=== PATIENT | female | born 1970 | race Caucasian/White ===

== ENCOUNTER → 2023-09-06 11:27 | Outpatient (BNVA) | payer OTHER, SELFPAY | PROVIDERS: PCP Internal Medicine; Visit Provider Physician Assistant Medical | DX: S39.012A Strain of muscle, fascia and tendon of lower back, initial encounter (principal); W01.0XXA Fall on same level from slipping, tripping and stumbling without subsequent striking against object, initial encounter; M54.17 Radiculopathy, lumbosacral region | CPT/HCPCS: 99202 ==

== ENCOUNTER → 2023-09-08 14:38 | Outpatient (BNVA) | payer OTHER, SELFPAY | PROVIDERS: PCP Internal Medicine; Visit Provider Physician Assistant Medical | DX: S39.012A Strain of muscle, fascia and tendon of lower back, initial encounter (principal); W01.0XXA Fall on same level from slipping, tripping and stumbling without subsequent striking against object, initial encounter | CPT/HCPCS: 99213 ==

== ENCOUNTER → 2023-09-13 10:44 | Outpatient (BNVA) | payer OTHER, SELFPAY | PROVIDERS: PCP Internal Medicine; Visit Provider Physician Assistant Medical | DX: S39.012A Strain of muscle, fascia and tendon of lower back, initial encounter (principal); W01.0XXA Fall on same level from slipping, tripping and stumbling without subsequent striking against object, initial encounter | CPT/HCPCS: 99213 ==

== ENCOUNTER → 2023-10-04 15:14 | Outpatient (BNVA) | payer OTHER, SELFPAY | PROVIDERS: PCP Internal Medicine; Visit Provider Physician Assistant Medical | DX: S39.012A Strain of muscle, fascia and tendon of lower back, initial encounter (principal); W01.0XXA Fall on same level from slipping, tripping and stumbling without subsequent striking against object, initial encounter | CPT/HCPCS: 99213 ==

== ENCOUNTER 2024-02-29 07:29 | Outpatient (REF) | payer OTHER, SELFPAY ==
--- NOTE | ~2024-02-29 | XR_ITS ---
EXAMINATION: XR KNEE, RIGHT CLINICAL INFORMATION: M17.11 - Unilateral primary osteoarthritis, right knee COMPARISON: None available. TECHNIQUE: Four views of the right knee. FINDINGS: No fracture or joint effusion. Alignment is anatomic. Medial lateral joint spaces are normal. Mild patellofemoral joint space loss. Soft tissues appear normal. XR/XR knee RT 3V IMPRESSION: Mild patellofemoral osteoarthrosis. Otherwise normal exam. Electronically signed by: Keenan Hairston MD 05/07/2024 11:20 AM [facility]
--- NOTE | ~2024-02-29 | XR_ITS ---
EXAMINATION: XR KNEE, LEFT CLINICAL INFORMATION: M25.562 - Pain in left knee COMPARISON: None available. TECHNIQUE: AP view of the left knee. FINDINGS: No fracture or joint effusion. Alignment is anatomic. Joint spaces are maintained. No abnormal soft tissue calcification. XR/XR knee LT 1V IMPRESSION: Normal left knee. Electronically signed by: Keenan Hairston MD 05/07/2024 11:09 AM [facility]
== END 2024-02-29 07:30 | disposition home or self-care (01) ==
LOC: HO.XRAY 07:29
PROVIDERS: PCP Internal Medicine; Visit Provider Physician Assistant
DX: T14.8XXA Other injury of unspecified body region, initial encounter (principal); M23.91 Unspecified internal derangement of right knee; M17.11 Unilateral primary osteoarthritis, right knee; M25.562 Pain in left knee
CPT/HCPCS: 73560; 73562; 99202

== ENCOUNTER → 2024-02-29 07:37 | Outpatient (BNV) | payer OTHER, SELFPAY | PROVIDERS: PCP Internal Medicine; Visit Provider Radiology Diagnostic Radiology | DX: M17.11 Unilateral primary osteoarthritis, right knee (principal); M25.562 Pain in left knee | CPT/HCPCS: 73560; 73564 ==

== ENCOUNTER 2024-02-29 08:05 | Outpatient (AMB) | payer OTHER, SELFPAY ==
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
== END 2024-02-29 08:41 | disposition home or self-care (01) ==
PROVIDERS: PCP Internal Medicine; Visit Provider Physician Assistant
DX: M23.91 Unspecified internal derangement of right knee (principal); M17.11 Unilateral primary osteoarthritis, right knee; S80.01XA Contusion of right knee, initial encounter; Z04.2 Encounter for examination and observation following work accident
CPT/HCPCS: 99203; G2211

== ENCOUNTER 2024-05-06 18:20 | Outpatient (REF) | payer OTHER, BC, SELFPAY ==
--- NOTE | ~2024-05-06 | MR_ITS ---
EXAMINATION: MR KNEE WITHOUT CONTRAST, RIGHT CLINICAL INFORMATION: Unilateral primary osteoarthritis COMPARISON: None available. TECHNIQUE: MRI of the knee without contrast was performed using routine sequences on a high-field scanner. FINDINGS: MENISCI: Medial Meniscus: Intact Lateral Meniscus: Minimal fraying of the free edge of the lateral meniscal body. No tears LIGAMENTS: Cruciate: Intact Collateral: Thickening of the MCL proximally near the origin, potentially the result of an old sprain. No acute sprains or tears are identified. LCL complex is normal. EXTENSOR MECHANISM: Edema signal is present at the superolateral aspect of Hoffa's fat pad in the inferolateral aspect of the pre-femoral fat pad. Quadriceps and patellar tendons are intact. ARTICULAR CARTILAGE/BONE: Mild marrow edema signal in the anterolateral aspect of the tibial plateau. Patellofemoral Compartment: There is a 1.6 x 0.8 cm area of moderate nonuniform cartilage loss at the median ridge of the patella with more mild surrounding partial-thickness cartilage loss. At the inferior aspect of the medial trochlear facet, there is a 1 x 0.6 cm focus of high-grade cartilage loss with cortical irregularity and subcortical cystic change. Medial Compartment: Normal Lateral Compartment: Normal JOINT FLUID AND BURSAE: No joint effusion and Temple's cyst. There is a synovial cyst arising at the origin of the lateral head of the gastrocnemius muscle from the femur. MR/MR knee RT wo con IMPRESSION: 1. Mild patellofemoral compartment osteoarthritis with focal areas of high-grade cartilage loss at the median ridge of the patella and medial trochlear facet. 2. Edema signal in the superolateral aspect of Hoffa's fat pad and inferolateral aspect of the pre-femoral fat pad as can be seen with patellar tendon-lateral femoral condyle friction syndrome. 3. Minimal fraying of the free edge of the lateral meniscal body. No meniscal tears. Electronically signed by: Keenan Aguero MD 05/06/2024 07:09 PM [facility]
== END 2024-05-06 18:21 | disposition home or self-care (01) ==
LOC: HO.MRI 18:20
PROVIDERS: PCP Internal Medicine; Visit Provider Physician Assistant
DX: M17.11 Unilateral primary osteoarthritis, right knee (principal)
CPT/HCPCS: 73721

== ENCOUNTER 2024-05-23 07:51 | Outpatient (AMB) | payer OTHER, SELFPAY ==
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
--- OUTSIDE RECORDS SUMMARY | 2024-05-23 07:54 | XMS_ITS | Continuity of Care Document ---
Author Organization [facility] Address [address] [place] [address] Phone [phone] Care Team Providers Care Flight Agent Name Role Phone Sami Schrader M.D. Care Team Information Re ceiver [phone] Problems Active Problems Provider Date Anxiety Aminah Aguilar et: 01/29/2022 Papillary thyroid carcinoma Sharyn mitchell M.D. Onset: 01/29/2022 Obesity Sharyn Brown M.D. 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 06/10/2022 Multivitamin WomenTablets 1 by mouth every day Sharyn Brown M.D. Vital Signs Date Vital Result Comment 07/26/2023 8:54am BP Systolic 134 mmHg BP Diastolic 84 mmHg Heart Rate 87 /min Height 64 inches 5'4 Weight 166.50 lb BMI (Body Mass Index) 28.6 kg/m2 Results Test Acquired Date Facility Test Result H/L Range Note Laboratory test finding 01/21/2024 [facility] TSH RFX On Abnormal To Free T4 <pending> Laboratory test finding 07/26/2023 [facility] TSH With Reflex To FT4 0.05 uIU/mL Low (0.4-4.2) Thyroglobulin,T um or MRKR W/RFLX <1.0 1 Thyroglobulin Reflex Immunoassay <0.1 Low 2 Free T4 1.79 ng/dL (0.70-1.8 0) Laboratory test finding 01/16/2023 [facility] TSH With Reflex To FT4 <pending> Laboratory test finding 01/13/2023 [facility] TSH With Reflex To FT4 0.03 uIU/mL Low (0.4-4.2) Free T4 1.68 ng/dL (0.70-1.8 0) Laboratory test finding 09/01/2022 [facility] TSH 191.00 uIU/mL High (0.4-4.2) Thyroglobulin,T um or MRKR W/RFLX <1.0 3 Thyroglobulin Reflex Immunoassay <0.1 Low 4 Laboratory test finding 08/10/2022 [facility] TSH <pending> Thyroglobulin, Tumor Marker W/Reflex <pending> Laboratory test finding 08/06/2022 [facility] TSH With Reflex To FT4 6.14 uIU/mL High (0.4-4.2) Free T4 0.99 ng/dL (0.70-1.8 0) Thyroglobulin,T um or MRKR W/RFLX <1.0 5 Thyroglobulin Reflex Immunoassay <0.1 Low 6 Laboratory test finding 06/10/2022 [facility] TSH With Reflex To FT4 <pending> Thyroglobulin, Tumor Marker W/Reflex <pending> Laboratory test finding 01/29/2022 [facility] TSH With Reflex To FT4 0.05 uIU/mL Low (0.4-4.2) Free T4 2.18 ng/dL High (0.70-1.8 0) 1 Reference range: 0.0 to 0.9 Unit: IU/mL (NOTE) Thyroglobulin Antibody measured by [facility] Methodology It should be noted that the presence of thyroglobulin antibodies may not be pathogenic nor diagnostic, especially at very low levels. The assay mannequin refinisher has found that four percent of individuals without evidence of thyroid disease or autoimmunity will have positive TgAb levels up to 4 IU/mL. Test performed by [facility] [address] Reference range: 1.5 to 38.5 Unit: ng/mL (NOTE) According to the National Academy of Clinical Biochemistry, the reference interval for Thyroglobulin (TG) should be related to euthyroid patients and not for patients who underwent thyroidectomy. TG reference intervals for these patients depend on the residual mass of the thyroid tissue left after surgery. Establishing a post-operative baseline is recommended. The assay limit of quantitation is 0.1 ng/mL Thyroglobulin measured by Angel[facility] Immunometric Assay Test performed by [facility] [address] Reference range: 0.0 to 0.9 Unit: IU/mL (NOTE) Thyroglobulin Antibody measured by Angel[facility] Methodology Test performed by [facility] [address] Reference range: 1.5 to 38.5 Unit: ng/mL (NOTE) According to the National Academy of Clinical Biochemistry, the reference interval for Thyroglobulin (TG) should be related to euthyroid patients and not for patients who underwent thyroidectomy. TG reference intervals for these patients depend on the residual mass of the thyroid tissue left after surgery. Establishing a post-operative baseline is recommended. The assay limit of quantitation is 0.1 ng/mL Thyroglobulin measured by Angelina Jann[facility] Immunometric Assay Test performed by [facility] [address] Reference range: 0.0 to 0.9 Unit: IU/mL (NOTE) Thyroglobulin Antibody measured by Angel[facility] Methodology Test performed by [facility] [address] Reference range: 1.5 to 38.5 Unit: ng/mL (NOTE) According to the National Academy of Clinical Biochemistry, the reference interval for Thyroglobulin (TG) should be related to euthyroid patients and not for patients who underwent thyroidectomy. TG reference intervals for these patients depend on the residual mass of the thyroid tissue left after surgery. Establishing a post-operative baseline is recommended. The assay limit of quantitation is 0.1 ng/mL Thyroglobulin measured by Angel[facility] Jann[facility] Immunometric Assay Test performed by [facility] [address] Procedures Date Code Description Status 07/26/2023 21330 Collection Of Venous Blood B y Venipuncture Completed 01/13/2023 58153 Collection Of Venous Blood B y Venipuncture Completed 01/29/2022 29498 Collection Of Venous Blood B y Venipuncture Completed Medical Devices Description No Information Available Encounters Type Date Location Provider Dx Diagnosis Office Visit 07/26/2023 8:45a Main Office Sharyn Brown M.D. C73 Malignant neoplasm of thyroid gland E89.0 Postprocedural hypot hyroidism Assessments Date Code Description Provider 07/26/2023 C73 Malignant neoplasm of thyroi d gland Sharyn Brown M.D. 07/26/2023 E89.0 Postsurgical hypothyroidism Sharyn Brown M.D. Plan of Treatment Future Appointment(s):* 05/25/2024 2:15 pm - Sharyn Brown M.D. 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 Created [address] [place] [address] Drive [address] [place] [address] [phone] Sharyn Brown M.D. Created [address] [place] [address] Drive [address] [place] [address] [phone]
[2024-05-23 07:58] VITALS: BMI 24.9
== END 2024-05-23 08:35 | disposition home or self-care (01) ==
PROVIDERS: PCP Internal Medicine; Visit Provider Physician Assistant
DX: M25.561 Pain in right knee (principal)
CPT/HCPCS: 99213; G2211

== ENCOUNTER 2024-06-07 13:49 | Outpatient (REF) | payer OTHER, SELFPAY ==
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
--- OUTSIDE RECORDS SUMMARY | 2024-06-07 15:10 | XMS_ITS | Continuity of Care Document ---
Author Organization [facility] Address [address] [place] [address] Phone [phone] Care Team Providers Care Cork Mixer Name Role Phone Sami Schrader M.D. Care Team Information Re ceiver [phone] Problems Active Problems Provider Date Anxiety Aminah [...] SIG Qnty Indications Ordering Provider Date Levothyroxine [id number] Tablets Take 1 Tablet By Mouth Every [...] Free T4 <pending> Laboratory test finding 07/26/2023 [facility] TSH With Reflex To FT4 0.05 uIU/mL Low (0.4-4.2) Thyroglobulin,T um or MRKR W/RFLX <1.0 1 Thyroglobulin Reflex Immunoassay <0.1 Low 2 Free T4 1.79 ng/dL (0.70-1.8 0) Laboratory test finding 01/16/2023 [facility] TSH With Reflex To FT4 <pending> Laboratory test finding 01/13/2023 [facility] TSH With Reflex To FT4 0.03 uIU/mL Low (0.4-4.2) Free T4 1.68 ng/dL (0.70-1.8 0) Laboratory test finding 09/01/2022 [facility] TSH 191.00 uIU/mL High (0.4-4.2) Thyroglobulin,T um or MRKR W/RFLX <1.0 3 Thyroglobulin Reflex Immunoassay <0.1 Low 4 Laboratory test finding 08/10/2022 [facility] TSH <pending> Thyroglobulin, Tumor Marker W/Reflex <pending> Laboratory test finding 08/06/2022 [facility] TSH With Reflex To FT4 6.14 uIU/mL High (0.4-4.2) Free T4 0.99 ng/dL (0.70-1.8 0) Thyroglobulin,T um or MRKR W/RFLX <1.0 5 Thyroglobulin Reflex Immunoassay <0.1 Low 6 Laboratory test finding 06/10/2022 [facility] TSH With Reflex To FT4 <pending> Thyroglobulin, Tumor Marker W/Reflex <pending> Laboratory test finding 01/29/2022 [facility] TSH With Reflex To FT4 0.05 uIU/mL Low (0.4-4.2) Free T4 2.18 ng/dL High (0.70-1.8 0) 1 Reference range: 0.0 to 0.9 Unit: IU/mL (NOTE) Thyroglobulin Antibody measured by [facility] Methodology It should be noted that the presence of thyroglobulin antibodies may not be pathogenic nor diagnostic, especially at very low levels. The assay assistant director of admissions has found that four percent of individuals without evidence of thyroid disease or autoimmunity will have positive TgAb levels up to 4 IU/mL. Test performed by [facility] [address] Reference range: 1.5 to 38.5 Unit: [...] is 0.1 ng/mL Thyroglobulin measured by [facility] Immunometric Assay Test performed by [facility] [employer] [address] Reference range: 0.0 to 0.9 Unit: IU/mL (NOTE) Thyroglobulin Antibody measured by Angelina Jannet Methodology Test performed by [facility] [address] Reference range: 1.5 to 38.5 Unit: [...] is 0.1 ng/mL Thyroglobulin measured by [facility] Immunometric Assay Test performed by [facility] [address] Reference range: 0.0 to 0.9 Unit: IU/mL (NOTE) Thyroglobulin Antibody measured by [facility] Methodology Test performed by [facility] [address] Reference range: 1.5 to 38.5 Unit: [...] Angelina Jannet Immunometric Assay Test performed by [facility] [address] Procedures Date Code Description Status 05/25/2024 NSHOWOFF No Show Office Visit Complet ed 07/26/2023 53041 Collection Of Venous Blood B y Venipuncture Completed 01/13/2023 18049 Collection Of Venous Blood B y Venipuncture Completed 01/29/2022 41099 Collection Of Venous Blood B y Venipuncture [...] Brown M.D. Plan of Treatment Future Appointment(s):* 09/24/2024 2:30 pm - Sharyn Brown M.D. 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 Created [address] [place] [address] Drive [address] [place] [id number] [phone] Sharyn Brown M.D. Created [address] [place] [address] Drive [address] [place] [address] [phone]
== END 2024-06-07 13:50 | disposition home or self-care (01) ==
LOC: HO.NEURO 13:49
PROVIDERS: PCP Internal Medicine; Visit Provider Physician Assistant
DX: R20.0 Anesthesia of skin (principal); R20.2 Paresthesia of skin
CPT/HCPCS: 95886; 95908; 95909

== ENCOUNTER → 2024-06-07 13:52 | Outpatient (BNV) | payer OTHER, SELFPAY | PROVIDERS: PCP Internal Medicine; Visit Provider Physical Medicine & Rehabilitation | DX: R20.0 Anesthesia of skin (principal); R20.2 Paresthesia of skin | CPT/HCPCS: 95886; 95909 ==

== ENCOUNTER 2024-06-15 12:49 | Outpatient (RCR) | payer OTHER, BC, SELFPAY ==
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
== END 2024-07-13 10:43 | disposition home or self-care (01) ==
LOC: HO.PTCHIC 12:49
PROVIDERS: PCP Internal Medicine; Visit Provider Physician Assistant
DX: M25.561 Pain in right knee (principal); M62.81 Muscle weakness (generalized); R29.898 Other symptoms and signs involving the musculoskeletal system
CPT/HCPCS: 97110; 97161

== ENCOUNTER 2024-07-16 10:49 | Outpatient (AMB) | payer OTHER, BC, SELFPAY ==
--- NOTE | 2024-07-16 10:50 | MHC.OFFVIS ---
Intake Visit Reasons: Telehealth- EMG review RT knee Intake Note: Apurva is a 53 year old female who presents today VIA Telephone for an EMG review of her right knee. Allergies No Known Allergies Allergy (Verified 05/23/24 07:54) Medication List - Last Reconciled 07/16/24 by Sravanthi Babin PA-C levothyroxine 150 mcg PO DAILY HPI HPI Telehealth- EMG review RT knee: Details: 53 yo female presents for telehalth RLE emg study. She states she has been improving with strength but continues to have decreased sensation . Review of Systems Const All systems reviewed & are unremarkable except as noted in HPI and below Physical Exam Resp Effort & Inspection: normal respiratory effort and able to speak in complete sentences Telehealth Telehealth Telehealth Platform: Telephone Location of provider rendering services: practice address Location of patient: address on file Patient Identification confirmed using: Name, : Yes Telehealth method: voice only Patient verbally consented to treatment: Yes Patient verbally consented to billing insurance company: Yes Patient informed of any privacy concerns related to visit: Yes Minutes spent on Phone/Video with Pt.: 12 Results Reviewed Results Reviewed: IMPRESSION: 1. This is a normal study. 2. There is no electrodiagnostic evidence for peroneal neuropathy, tibial neuropathy, lumbosacral plexopathy, lumbar radiculopathy, or peripheral neuropathy. Assessment & Plan Assessment & Plan (1) Internal derangement of right knee: Code(s): M23.91 - Unspecified internal derangement of right knee Category: Medical (2) Osteoarthritis of right knee: Code(s): M17.11 - Unilateral primary osteoarthritis, right knee Category: Medical Qualifiers: Osteoarthritis type: primary Qualified Code(s): M17.11 - Unilateral primary osteoarthritis, right knee (3) Patellofemoral arthralgia of right knee: Code(s): M25.561 - Pain in right knee Category: Medical Plan I reassured her with a negative EMG study her symptoms are likely to resolve completely however this can take 6-12 months from injury. I offered her an appointment with Dr. Barraza to discuss this further however she would like to continue conservative treatment to see how this goes over the next several months as her symptoms have been improving. If symptoms change where she has developed worsening numbness tingling burning or even weakness and pain she should contact our office otherwise follow up as needed. Coding Level of Care Code Tele Est Pt Level 3 (74965) Complex EM visit Add On G2211 Diagnoses Internal derangement of right knee M23.91 Primary osteoarthritis of right knee M17.11 Osteoarthritis type: primary Patellofemoral arthralgia of right knee M25.561
== END 2024-07-16 11:43 | disposition home or self-care (01) ==
LOC: HO.HOS 10:49
PROVIDERS: PCP Internal Medicine; Visit Provider Physician Assistant
DX: M23.91 Unspecified internal derangement of right knee (principal); M17.11 Unilateral primary osteoarthritis, right knee; M25.561 Pain in right knee
CPT/HCPCS: 99213; G2211